=== PATIENT | male | born 1975 | race Asian ===

== ENCOUNTER 2025-01-29 12:52 | Outpatient (CLI) | payer OTHER, SELFPAY ==
--- NOTE | 2025-01-29 | ECG_ITS ---
Test Date: 2025-01-29 13:28:45 Measurements Intervals Curran Rate: 73 P: 53 PA: 151 QRS: 58 QRSD: 170 T: 24 QT: 392 QTc: 432 Interpretive Statements SINUS RHYTHM RIGHT BUNDLE BRANCH BLOCK [120+ ms QRS DURATION, UPRIGHT V1, 40+ ms S IN I/aVL/V4/V5/V6] ABNORMAL ELECTROCARDIOGRAM No previous ECG available for comparison Electronically Signed On 01-30-2025 08:27:06 CDT by Beto Shaw M.D.
--- OUTSIDE RECORDS SUMMARY | 2025-01-29 13:06 | XMS_ITS | Encounter Summary ---
Author Organization [facility] Address [address] [place] [address] Phone Care Team Providers Care Material Control Supervisor Name Role Phone No, Physician Primary Care Provider [phone] Encounter Details Date Type Department Care Team (Late st Contact Info) Description 01/04/[address] 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 Dr. Pawan OKEEFE for tappet adjuster. Follow up after surgery. documented in this encounter Plan of Treatment Not on file documented as of this encounter Visit Diagnoses Not on filedocumented in this encounter Care Teams Material Control Supervisor Relationship Specialty Start Date End Date No, Physician PCP - General Neurology 12/25/24 documented as of this encounter
--- OUTSIDE RECORDS SUMMARY | 2025-01-29 13:06 | XMS_ITS | Clinical Summary ---
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 Take 1 tablet (600 mg total) by mouth every 6 hours as needed for pain 20 tablet 04/10/2024 Active multivit with calcium,iron,min (MULTIVITAMIN-CA LCIUM AND IRON OR) Take 1 tablet by mouth every day Active Active Problems No known active problems Resolved Problems Problem Noted Date Diagnosed Date Resolved Date Screening for colon cancer 07/01/2023 0 09/11/2023 Immunizations Immunization Administration Dates Next Due SARS-COV-2 (PerformYard Covid-19) 01/03/20 21 SARS-COV-2 (Pfizer 12+ Bival ent Covid-19) - Duran Cap/Border 05/08/2022 SARS-CoV-2 (Pfizer Monovalent COVID-19) 04/28/20 21 Family History Medical History Relation Name Comments Diabetes Father Relation Name Status Comments Father Social History Tobacco Use Types Packs/Day Years Used Date Smoking Tobacco: Never Smokeless Tobacco: Never Alcohol Use Standard Drinks/Week Comments Yes 0 (1 standard drink = 0.6 oz pur e alcohol) Sex and Gender Information Value Date Recorded Sex Assigned at Not on file Legal Sex Male 9:19 AM EARLY BREASTFEEDING CARE SPECIALIST Gender Identity Not on file Sexual Orientation Not on file Last Filed Vital Signs Vital Sign Reading Time Taken Comments Blood Pressure 106/70 08/24/2024 10:30 AM CDT Pulse 75 08/24/2024 10:30 AM CDT Temperature 36.4 C (97.5 F) 04/10/2024 9:39 AM EARLY BREASTFEEDING CARE SPECIALIST Respiratory Rate 16 04/10/2024 9:39 AM EARLY BREASTFEEDING CARE SPECIALIST Oxygen Saturation 94% 08/24/2024 10:30 AM CDT Inhaled Oxygen Concentration - - Weight 86.3 kg (190 lb 4.1 oz) 08/24/2024 10:30 AM CDT Height 167.6 cm (5' 6) 08/24/2024 10:30 AM CDT Body Mass Index 30.71 08/24/2024 10:30 AM CDT Plan of Treatment Health Maintenance Due Date Last Done Comments Diagnostic Colonoscopy 1977 MMR Vaccines (1 of 1 - Standard series) 1978 DTaP/Tdap/Td Vaccines (1 - Tdap) 1996 Hepatitis B Vaccines (1 of 3 - 19+ 3-dose series) 1996 CT Colonography 2022 FIT-DNA (Cologuard) 2022 Fecal Immunochemical Testing (FIT) 2022 Fecal Occult Blood (FOBT) 2022 Flexible Sigmoidoscopy 2022 Depression Screening 06/03/2024 06/03/2023 COVID-19 Vaccine (2024-2 6 season) 2025 05/08/2022, 04/28/2021, 01/02/2021 Influenza Vaccine (#1) 2025 Screening for Diabetes 06/04/2026 , 06/03/2023 Lipid Panel 06/03/2028 06/03/2023 Colorectal Cancer Screening 07/29/2033 Screening Colonoscopy 07/29/2033 07/30/2023 HIB Vaccines Aged Out No longer eligi ble based on patient's age to complete this topic HPV Vaccines Aged Out No longer eligi ble based on patient's age to complete this topic Hepatitis A Vaccines Aged Out No long er eligible based on patient's age to complete this topic IPV Vaccines Aged Out No longer eligi ble based on patient's age to complete this topic Meningococcal B Vaccine Aged Out No l onger eligible based on patient's age to complete this topic Meningococcal Vaccine (ACWY) Aged Out No longer eligible based on patient's age to complete this topic Pneumococcal Vaccines Aged Out No benson giana eligible based on patient's age to complete this topic Rotavirus Vaccines Aged Out No longer eligible based on patient's age to complete this topic Medical Devices Implanted Type Area Floor Renovator Device Identifier Shelf Expiration Date Model / Serial / Lot Knee Description:Rt knee-screws, plate-2017 Procedures Procedure Name Priority Date/Time Associated Diagnosis Comments GLYCO HB A1C Routine 06/04/2023 7:54 AM EARLY BREASTFEEDING CARE SPECIALIST Elevated fasting glucose LIPID PANEL Routine 06/03/2023 8:21 AM EARLY BREASTFEEDING CARE SPECIALIST Screening cholesterol level from Last 3 Months or Most Recently Relevant to Health Maintenance Results * GLYCO HB A1C (06/04/2023 7:54 AM EARLY BREASTFEEDING CARE SPECIALIST) GLYCO HB A1C 5.4 4.0 - 7.0 % [facility] Comment: Recommended goal of therapy for adults with diabetes mellitus: <7.0% Adults > or =18 years: Increased risk (prediabetes): 5.7-6.4% The [place] Diabetes Association recommends the use of A1C for the diagnosis of diabetes mellitus in non- adults with an A1C result of > or =6.5% and confirmed with repeat testing. ESTIMATED AVERAGE GLUCOSE 108 [facility] Comment: The relationship between A1c and eAG is described by the formula (28.7 x A1c)-46.7 = eAG. Recommended eAG: <150 mg/dL [facility], [address] [place] [id number] 06/04/2023 7:54 AM EARLY BREASTFEEDING CARE SPECIALIST 06/04/2023 12:23 PM EARLY BREASTFEEDING CARE SPECIALIST us Shivam Bocanegra MD HEM/CHEM/IMMUN-BLOOD Final Resu lt [facility] [address] [place] [id number], * (ABNORMAL) LIPID PANEL (06/03/2023 8:21 AM EARLY BREASTFEEDING CARE SPECIALIST) CHOLESTEROL, TOTAL 203(H) 0 - 200 mg/dL [facility] Comment: Child Range (mg/dL) : Desirable < 170 Borderline 170 to 199 High >= 200 Adult Range: Desirable < 200 Borderline 200 to 239 High >= 240 TRIGLYCERIDES 98 <150 mg/dL [facility] Comment: Normal < 150 Borderline High 150 to 199 High 200 to 499 Very High >= 500 The National Cholesterol Education Program (NCEP) Adult Treatment Panel III Report recommends the classification shown above. Laboratories should follow recommendations for lipid ranges effective in their locale if they differ from those of the NCEP. HDL CHOLESTEROL 42 40 - 60 mg/dL [facility] Comment: The National Cholesterol Education Program (NCEP) recommends using fasting specimens for a lipoprotein profile. If the specimen is nonfasting, only the values for total cholesterol and HDL cholesterol are usable. LDL CHOLESTEROL >130 <100 mg/dL [facility] Comment:[facility] sp[facility], [address] [place] [address] 06/03/2023 8:21 AM EARLY BREASTFEEDING CARE SPECIALIST 06/03/2023 12:14 PM EARLY BREASTFEEDING CARE SPECIALIST us Shivam Bocanegra MD HEM/CHEM/IMMUN-BLOOD Final Resu lt [facility] [address] [place] [address], from Last 3 Months or Most Recently Relevant to Health Maintenance Insurance [employer]CIAL [employer] [facility] [facility] WORK [address] [place] [address] Care Teams Police Commissioner Relationship Specialty Start Date End Date Shivam Bocanegra MD [address] [place] [address] PCP - General Adult Medicine 06/03/23
--- OUTSIDE RECORDS SUMMARY | 2025-01-29 13:06 | XMS_ITS | Clinical Summary ---
Author Organization [facility] Address [address] [place] [address] Care Team Providers Care Environmental Professional Name Role Phone Santana Randhawa MD Primary Care Provider [phone] Allergies No known active allergies Medications Multiple Vitamins-Mineral s (CENTRUM) TABS Take 1 Tab by mouth daily Active Active Problems Problem Noted Date Diagnosed Date External hemorrhoid, thrombosed 11/06/2019 Internal hemorrhoids 11/06/2019 Rectal bleeding 11/06/2019 Rectal pain 11/06/2019 Closed fracture of femoral condyle 12/18/2016 Family History Relation Name Status Comments Father Alive Mother Alive Social History Tobacco Use Types Packs/Day Years Used Date Smoking Tobacco: Never Smokeless Tobacco: Never Tobacco Cessation:Counseling Given: Yes Alcohol Use Standard Drinks/Week Comments No 0 (1 standard drink = 0.6 oz pur e alcohol) Alcohol Use Answer Date Recorded Frequency of Alcohol Consumption Not on file 10/27/2023 Average Number of Drinks Not on file 024 Frequency of Binge Drinking Not on file 10/11 Alcohol Use Status No 10/27/2023 Average alcohol consumption Not on file 10/11 Sex and Gender Information Value Date Recorded Sex Assigned at Not on file Legal Sex Male 5:16 AM PUNCHER Gender Identity Not on file Sexual Orientation Not on file Last Filed Vital Signs Vital Sign Reading Time Taken Comments Blood Pressure 141/92 11/17/2022 9:58 AM EDT Pulse 56 11/17/2022 9:58 AM EDT Temperature 36.8 C (98.2 F) 11/17/2022 9:58 AM EDT Respiratory Rate 16 11/17/2022 9:58 AM EDT Oxygen Saturation 97% 11/17/2022 9:58 AM EDT Inhaled Oxygen Concentration - - Weight 83.9 kg (185 lb) 11/17/2022 9:58 AM EDT Height 167.6 cm (5' 6) 11/17/2022 9:58 AM EDT Body Mass Index 29.86 11/17/2022 9:58 AM EDT Plan of Treatment Health Maintenance Due Date Last Done Comments HIV Screening 1977 Hepatitis C Screening ages 1 8 to 79 once 1977 MMR VACCINES (1 of 1 - Standard series) 1978 DEPRESSION SCREENING 1989 ADULT TETANUS 1996 HEPATITIS B VACCINES (1 of 3 - 19+ 3-dose series) 1996 LIPID TESTING 2012 Colon Cancer Screening 2022 Influenza Vaccine 12/11/2024 YEARLY WELLNESS EXAM 12/30/2024 12/31/2023 COVID-19 Immunization ( season) 2025 05/08/2022, 04/28/2021, 01/02/2021 Zoster Vaccine (Recombinant Vaccine) (1 of 2) 08/21/2027 HEPATITIS A VACCINES Aged Out No long er eligible based on patient's age to complete this topic HIB VACCINES Aged Out No longer eligi ble based on patient's age to complete this topic HPV VACCINES Aged Out No longer eligi ble based on patient's age to complete this topic IPV VACCINES Aged Out No longer eligi ble based on patient's age to complete this topic MENINGOCOCCAL VACCINE Aged Out No benson giana eligible based on patient's age to complete this topic Meningococcal B Vaccine Aged Out No l onger eligible based on patient's age to complete this topic Pneumococcal Vaccine: Peds t o 50 & At-Risk Patients Aged Out No longer eligible based on patient's age to complete this topic ROTAVIRUS VACCINES Aged Out No longer eligible based on patient's age to complete this topic Medical Devices Implanted Type Area Outreach Assistant Device Identifier Shelf Expiration Date Model / Serial / Lot Plate T 4hh 6hs 3.5x78 Ra Cn [id number] Implanted:Qty: 1 on 12/20/2016 by Drew Shin MD at [facility] Plate Right: [employer]) 241.171 / / Screw Cortex S-T 3.5x38 Cn 204.838 Implanted:Qty: 1 on 12/20/2016 by Drew Shin MD at [facility] Screw Right: [employer]) 204.838 / / Screw Cortex S-T 3.5x45 Cn 204.845 Implanted:Qty: 2 on 12/20/2016 by Drew Shin MD at [facility] Screw Right: [employer]) 204.845 / / Screw Cortex S-T 3.5x55 Cn 204.855 Implanted:Qty: 1 on 12/20/2016 by Drew Shin MD at [facility] Screw Right: [employer]) 204.855 / / Screw Bone Canc F-T 4.0x60 Cn 206.060 Implanted:Qty: 2 on 12/20/2016 by Drew Shin MD at [facility] Screw Right: [employer]) 206.060 / / 2.7 Mm Metaphyseal S-T Screw 70mm Implanted:Qty: 2 on 12/20/2016 by Drew Shin MD at [facility] Screw Right: Fem[employer] 02.118.570 / / Explanted Type Area Outreach Assistant Device Identifier Shelf Expiration Date Model / Serial / Lot K-Wire .062 Trocar Pt Cn [id number] Implanted:Drew More MD (Quantity not on file) Explanted:Qty: 4 on 12/20/2016 by Drew Shin MD at [facility] K-Wire Right: [employer] [id number] / / Pin Abe 5/64x9 Cn T-078-S Implanted:Drew More MD (Quantity not on file) Explanted:Qty: 1 on 12/20/2016 by Drew Shin MD at [facility] Pin Right: [employer] T-078-S / / Insurance AETNA HEALTHCARE AET HEALTHCARE AETNA HEALTHCARE [facility] HEALTHCARE STATE [facility] Advance Directives * Full Code (Latest Code Status on File) Date Activated Date Inactivated Comments 12/18/2016 5:39 PM 12/21/2016 8:15 PM Care Teams Environmental Professional Relationship Specialty Start Date End Date Santana Randhawa MD [address] [place] [address] [place] [address] PCP - General Internal Medicine 12/18/16
--- OUTSIDE RECORDS SUMMARY | 2025-01-29 13:06 | XMS_ITS | Clinical Summary ---
Author Organization [facility] Address [facility] [place] [address] Phone Care Team Providers Care Ciaio Lumite Injector Name Role Phone Unavailable Primary Care Provider Unavailabl e Allergies No known active allergies Medications sildenafil citrate (VIAGRA) 100 MG Tablet Take 100 mg by mouth as needed. Take 1 tablet by oral route every day as needed approximately 1 hour before sexual activity Active multiple vitamin with minerals (CENTRUM) Tablet Take 1 Tablet by mouth daily. Active Active Problems Problem Noted Date Diagnosed Date Rectal bleeding 12/18/2021 Wellness examination (Adult) 12/18/2021 Family History Medical History Relation Name Comments Arthritis Father Diabetes Father Kidney Disease Father Hypertension Mother Relation Name Status Comments Brother 1 John Alive Brother 2 Virgilio Alive Father Alive Mother Alive Sister Luz Alive Social History Tobacco Use Types Packs/Day Years Used Date Smoking Tobacco: Never Smokeless Tobacco: Never Alcohol Use Standard Drinks/Week Comments Yes 0 (1 standard drink = 0.6 oz pur e alcohol) Sexually Active Control Partners Comments Yes Sex and Gender Information Value Date Recorded Sex Assigned at Not on file Legal Sex Male 4:35 PM RESEARCH AND DEVELOPMENT DIRECTOR Gender Identity Not on file Sexual Orientation Not on file Last Filed Vital Signs Vital Sign Reading Time Taken Comments Blood Pressure 122/82 12/18/2021 4:02 PM CDT Pulse 64 12/18/2021 4:02 PM CDT Temperature - - Respiratory Rate 18 12/18/2021 4:02 PM CDT Oxygen Saturation 97% 12/18/2021 4:02 PM CDT Inhaled Oxygen Concentration - - Weight 83.5 kg (184 lb) 12/18/2021 4:02 PM CDT Height 167.6 cm (5' 6) 12/18/2021 4:02 PM CDT Body Mass Index 29.7 12/18/2021 4:02 PM CDT Plan of Treatment Health Maintenance Due Date Last Done Comments Hepatitis C Virus (HCV) Screening 1977 TdaP Immunization 1977 Hepatitis B Immunization (1 of 3 - 19+ 3-dose series) 1996 Cologuard 2022 Colonoscopy 2022 Colorectal Cancer Screening 2022 Immunochemical Fecal Occult Blood 2022 Influenza Immunization (#1) 2025 SARS-COV-2 Immunization ( - season) 2025 04/28/2021 Respiratory Syncytial Virus (RSV) Immunization (Adult) (1 - 1-dose 75+ series) 2052 Human Papillomavirus (HPV) Immunization Aged Out No longer eligible b ased on patient's age to complete this topic Meningococcal Immunization (ACWY) Aged Out No longer eligible based on patient's age to complete this topic Pneumococcal Immunization Combined Aged Out No longer eligible based on patient's age to complete this topic Rotavirus Immunization Aged Out No lo nger eligible based on patient's age to complete this topic [facility] [employer]
--- OUTSIDE RECORDS SUMMARY | 2025-01-29 13:06 | XMS_ITS | Clinical Summary ---
Author Organization [facility] Address [address] [facility] [place] [address] Care Team Providers Care Gage Designer Name Role Phone Shivam Bocanegra MD Primary Care Provider Source Comments [facility],non-owned Affiliates and Associated Physician Practices is amultiple site organization consisting of ambulatory clinics and hospital sitesin [place], [place], [place] and [place]. This disclosure is being madepursuant to the Care Everywhere program and may not contain all information available regarding this patient. Last updated 18.[facility] Allergies No known active allergies Social History Tobacco Use Types Packs/Day Years Used Date Smoking Tobacco: Never Assessed Sex and Gender Information Value Date Recorded Sex Assigned at Not on file Legal Sex Male 9:03 AM COMMUTATOR REPAIRER Gender Identity Not on file Sexual Orientation Not on file Plan of Treatment Health Maintenance Due Date Last Done Comments COLOGUARD (AGES 45-75) - COL ON CA SCREENING 1977 COLON MONITORING 1977 COLONOSCOPY - COLON CA SCREENING 1977 CT COLONOGRAPHY - COLON CA SCREENING 1977 Colorectal Cancer Screening 1977 FIT - COLON CA SCREENING 1977 FLEX SIG - COLON CA SCREENING 1977 HIV SCREENING 1992 HEPATITIS C SCREENING 08/16/1995 DTAP/TDAP/TD VACCINES (1 - Tdap) 1996 HEPATITIS B VACCINE (1 of 3 - 19+ 3-dose series) 1996 DEPRESSION SCREENING 05/13/2024 COVID-19 VACCINE ( - 2024-2 6 season) 2025 05/08/2022, 04/28/2021, 01/02/2021 INFLUENZA VACCINE (#1) 2025 ZOSTER VACCINE (1 of 2) 08/21/2027 LIPID TESTING 06/03/2028 06/03/2023 HIB VACCINE Aged Out No longer eligi ble based on patient's age to complete this topic HPV VACCINE Aged Out No longer eligi ble based on patient's age to complete this topic MENINGOCOCCAL (Group B) VACCINE SHARED DECISION-MAKING Aged Out No longer eligible based on patient's age to complete this topic MENINGOCOCCAL GROUPS A/C/Y/W VACCINE Aged Out No longer eligible b ased on patient's age to complete this topic PNEUMOCOCCAL VACCINE Aged Out No long er eligible based on patient's age to complete this topic Insurance [id number] GENERIC Care Teams Gage Designer Relationship Specialty Start Date End Date Shivam Bocanegra MD [address] [place] [address] PCP - General Internal Medicine 06/03/24
--- OUTSIDE RECORDS SUMMARY | 2025-01-29 13:06 | XMS_ITS | Encounter Summary ---
Author Organization [facility] Address [address] [place] [address] Phone Care Team Providers Care Bulb Sorter Name Role Phone Shivam Bocanegra MD Primary Care Provider [phone] Encounter Details Date Type Department Care Team (Late st Contact Info) Description 11/27/2022 Scanned Document [facility] [address] [place] [address] Eyer, Dagmar [place], ADARSH [address] [place] [id number] Social History Tobacco Use Types Packs/Day Years Used Date Smoking Tobacco: Never Assessed Sex and Gender Information Value Date Recorded Sex Assigned at Not on file Legal Sex Male 9:19 AM CAN LINE OPERATOR Gender Identity Not on file Sexual Orientation Not on file documented as of this encounter Plan of Treatment Not on file documented as of this encounter Visit Diagnoses Not on filedocumented in this encounter Care Teams Bulb Sorter Relationship Specialty Start Date End Date Shivam Bocanegra MD [address] [place] [address] PCP - General Adult Medicine 06/03/23 documented as of this encounter
--- OUTSIDE RECORDS SUMMARY | 2025-01-29 13:06 | XMS_ITS | Encounter Summary ---
Author Organization [employer] [facility] Address [address] [place] [address] Phone Care Team Providers Care Business Risk Analyst Name Role Phone Shivam Bocanegra MD Primary Care Provider [phone] Encounter Details Date Type Department Care Team ([facility] st Contact Info) Description 04/13/2024 Telephone [facility] [place] [address] [place] [address] Dru Hancock PA [address] [place] [address] Social History Tobacco Use Types Packs/Day Years Used Date Smoking Tobacco: Never Smokeless Tobacco: Never Alcohol Use Standard Drinks/Week Comments Yes 0 (1 standard drink = 0.6 oz pur e alcohol) Sex and Gender Information Value Date Recorded Sex Assigned at Not on file Legal Sex Male 9:19 AM ART PSYCHOTHERAPIST Gender Identity Not on file Sexual Orientation Not on file documented as of this encounter Miscellaneous Notes * Telephone Encounter - Lillie Shipman - 04/13/2024 8:06 AM CST Patient called and states he was seen in the emergency room and is wanting to schedule an appt withDru Hancock. I do not see a referral for this & he states it was a worker's compensation. He is requesting a call back to to get scheduled & can be reached at [phone] PSYCHOTHERAPIST documented in this encounter Plan of Treatment Not on file documented as of this encounter Visit Diagnoses Not on filedocumented in this encounter Additional Health Concerns Assessment Noted Time A Hypertension Plan of Care has been documented for the patient 06/03/2023 8:05 AM ART PSYCHOTHERAPIST documented as of this encounter Care Teams Business Risk Analyst Relationship Specialty Start Date End Date Shivam Bocanegra MD [address] [place] [address] PCP - General Adult Medicine 06/03/23 documented as of this encounter
--- OUTSIDE RECORDS SUMMARY | 2025-01-29 13:06 | XMS_ITS | Encounter Summary ---
Author Organization [facility] Address [address] [place] [address] Phone Care Team Providers Care Checker Product Design Name Role Phone Shivam Bocanegra MD Primary Care Provider [phone] Reason for Referral * Consultation - Authorized Specialty Diagnoses / Procedures Referred By Ryan balbuena Referred To Contact Orthopedics Diagnoses Acute pain of left shoulder Traumatic incomplete tear of left rotator cuff, subsequent encounter Rotator cuff tendinitis, left Adhesive capsulitis of left shoulder Work related injury Procedures AMB CONSULT [facility] Dru Hancock PA [address] [place] [address] Phone: tel: fax: Referral ID Status Reason Start Date Expiration Date V isits Requested Visits Authorized [id number] Authorized 08/28/2024 1 1 Reason for Visit * Reason Onset Date Comments Referral 08/27/2024 Encounter Details Date Type Department Care Team ([facility] st Contact Info) Description 08/27/2024 Telephone [facility] [place] [address] [place] [address] Dru Hancock PA [address] [place] [address] Referral Social History Tobacco Use Types Packs/Day Years Used Date Smoking Tobacco: Never Smokeless Tobacco: Never Alcohol Use Standard Drinks/Week Comments Yes 0 (1 standard drink = 0.6 oz pur e alcohol) Sex and Gender Information Value Date Recorded Sex Assigned at Not on file Legal Sex Male 9:19 AM STOCK FITTER Gender Identity Not on file Sexual Orientation Not on file documented as of this encounter Miscellaneous Notes * Telephone Encounter - Dru Hancock PA - 08/28/2024 8:44 AM CDT Referral to [facility] placed. * Telephone Encounter - Gavin Law - 08/27/2024 3:54 PM CDT Received call from Gruver Maik re pt's referral. Advised when she called pt to schedule an appointment, he informed her that he would be moving close to the [facility] area on September 25. Dr Camargo's next opening is not until October 12. States they are closing the referral with them. Wanted you to be aware of this so you can refer pt to somewhere closer to [facility] if needed. documented in this encounter Plan of Treatment Not on file documented as of this encounter Visit Diagnoses Diagnosis Acute pain of left shoulder- Primary Traumatic incomplete tear of left rotator cuff, subsequent encounter Rotator cuff tendinitis, left Adhesive capsulitis of left shoulder Adhesive capsulitis of shoulder Work related injury Injury, other and unspecified, unspecified site documented in this encounter Additional Health Concerns Assessment Noted Time A Hypertension Plan of Care has been documented for the patient 06/03/2023 8:05 AM STOCK FITTER documented as of this encounter Care Teams Checker Product Design Relationship Specialty Start Date End Date Shivam Bocanegra MD [address] [place] [address] PCP - General Adult Medicine 06/03/23 documented as of this encounter
--- OUTSIDE RECORDS SUMMARY | 2025-01-29 13:06 | XMS_ITS | Clinical Summary ---
Author Organization [facility] Address [address] [place] [id number] Care Team Providers Care Resident Care Provider Name Role Phone No, Physician Primary Care Provider Allergies No known active allergies Medications No known medications Active Problems Problem Noted Date Diagnosed Date Traumatic incomplete tear of left rotator cuff 0 01/04/2025 Superior glenoid labrum lesion of left shoulder 01/04/2025 Tear of left glenoid labrum 01/04/2025 Arthritis of left acromioclavicular joint 2024 Injury of left shoulder 10/20/2024 Acute pain of left shoulder 10/20/2024 Encounters Date Type Department Care Team Description 01/05/2025 Telephone [facility] Medicine Orthopaedic Surgery [address] [facility] 2nd [address] [place] [address] No Medel RMA 01/04/2025 2:10 PM CDT Office Visit [facility] [place], [place] Orthopaedic Surgery [address] [facility] 12th [place] [address] [place] [address] Ok Villalta IV, MD Tear of left glenoid labrum, subsequent encounter (Primary Dx); Superior glenoid labrum lesion of left shoulder, subsequent encounter; Traumatic incomplete tear of left rotator cuff, subsequent encounter; Arthritis of left acromioclavicular joint 01/04/2025 Telephone [facility] Medicine Orthopaedic Surgery [address] [facility] 2[address] [place] [address] Marialuisa Jorge ATC 12/25/2024 9:59 AM CDT - 12/25/2024 11:59 PM CDT Hospital Encounter [facility] [address] [place] [id number] Injury of left shoulder, initial encounter; Acute pain of left shoulder Discharge Disposition: Discharge to home or self care 12/25/2024 9:59 AM CDT - 12/25/2024 11:59 PM CDT Hospital Encounter [facility] [address] [place] [id number] Injury of left shoulder, initial encounter; Acute pain of left shoulder Discharge Disposition: Discharge to home or self care 12/16/2024 Orders Only [facility] [place] [place] Orthopaedic Surgery [address] [place] [address] [address]nd [address] [place] [address] Ok Villalta IV, MD Injury of left shoulder, initial encounter (Primary Dx); Acute pain of left shoulder 12/16/2024 Telephone [facility] [place] [place] Orthopaedic Surgery [address] [place] [address] 2nd [address] [place] [phone] Ok Villalta IV, MD 12/15/2024 Orders Only [facility] [place] [place] Orthopaedic Surgery [address] [place] [address] [address] [place] [address] Ok Villalta IV, MD from Last 3 Months Family History Medical History Relation Name Comments Arthritis Father Diabetes Father Gout Father Arthritis Mother Hypertension Mother Relation Name Status Comments Father Mother Social History Tobacco Use Types Packs/Day Years Used Date Smoking Tobacco: Never Tobacco Cessation:Counseling Given: Not Answered Sex and Gender Information Value Date Recorded Sex Assigned at Not on file Legal Sex Male 2:50 PM CDT Gender Identity Not on file Sexual Orientation Not on file 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 Not on file Not on file Obstetrics History Last Filed Vital Signs Vital Sign Reading Time Taken Comments Blood Pressure - - Pulse - - Temperature - - Respiratory Rate - - Oxygen Saturation - - Inhaled Oxygen Concentration - - Weight 83.9 kg (185 lb) 10/20/2024 11:3 4 AM CDT PATIENT REPORTED Height 167.6 cm (5' 6) 10/20/2024 11:3 4 AM CDT PATIENT REPORTED Body Mass Index 29.86 10/20/2024 11:34 AM CDT Plan of Treatment Health Maintenance Due Date Last Done Comments Colon Cancer Screening-Colonoscopy 1977 Depression Screening 1977 Hepatitis C Screening 1977 DTaP/Tdap/Td Vaccine (1 - Tdap) 1988 Hepatitis B Screening 08/21/1995 Regular Well Visit/Exam 18-64 08/21/1995 Covid-19 Vaccine (3 - 2024-2 6 season) 2025 04/28/2021, 01/02/2021 Influenza Vaccine (#1) 2025 Pneumococcal vaccine <65 Aged Out No longer eligible based on patient's age to complete this topic Procedures Procedure Name Priority Date/Time Associated Diagnosis Comments MRI SHOULDER ARTHROGRAM LEFT W CONTRAST Schedule Routine, Read Routine (OP Routine) 12/25/2024 11:06 AM CDT Injury of left shoulder, initial encounter Acute pain of left shoulder INJECTION SHOULDER LEFT ARTHRO ONLY Schedule Routine, Read Routine (OP Routine) 12/25/2024 10:36 AM CDT Injury of left shoulder, initial encounter Acute pain of left shoulder from Last 3 Months Results * MRI Shoulder Arthrogram Left W Contrast (12/25/2024 11:06 AM CDT) Anatomical Region Laterality Modality Upper Extremities Left Magnetic Reson ance 12/25/2024 12:0 9 PM CDT Impressions 12/25/2024 12:32 PM CDT 1. Left rotator cuff tendinopathy with 12 mm partial-thickness undersurface tear of the anterior supraspinatus, 15 mm partial-thickness, undersurface tear of the superior subscapularis tendon, and biceps tendinopathy (rotator interval lesion). 2. Nondisplaced tear of the superior and posterior glenoid labrum from 10-12 o'clock. 3. Moderate acromioclavicular joint osteoarthritis. Dictated by: Humberto Lux MD The radiology attending physician has personally reviewed this study, and had reviewed and/or edited this written report and agrees with it. Electronically signed by: Ilan Phillips M.D. Narrative 12/25/2024 12:32 PM CDT EXAMINATION: 1. MR left shoulder with contrast HISTORY: Left shoulder pain FINDINGS: Comparison radiographs from 10/17/2024. Injection arthrogram was performed prior to the MR, which will be dictated separately. MR examination of the left shoulder was performed with a local coil. Transverse, oblique coronal, and oblique sagittal short TR/TE and fast spin-echo images are obtained. Lastly, the arm was placed in the position of abduction and external rotation and oblique short TR/TE images were obtained. There is a type 2 acromion. The coracoacromial ligament is thin. There is no subacromial spur. There is moderate acromioclavicular joint osteoarthritis. There is trace subacromial subdeltoid bursitis. The rotator cuff muscle bulk is normal. There is moderate subscapularis tendinopathy with a distal partial thickness articular sided tear at the rotator interval and 1.5 cm of interstitial propagation. There is moderate supraspinatus tendinopathy with a delaminating 12 mm partial-thickness articular sided tear. Mild infraspinatus tendinopathy without tear. On this arthrographic evaluation, there is a nondisplaced posterior labral tear extending from the 11:00-7 o'clock position. The intra-articular biceps tendon is mildly tendinopathic. The labrum below the equator is otherwise normal. No loose bodies are identified. The bone marrow signal is normal. Procedure Note Ilan Phillips MD - 12/25/2024 EXAMINATION: 1. MR left shoulder with contrast HISTORY: Left shoulder pain FINDINGS: Comparison radiographs from 10/17/2024. Injection arthrogram was performed prior to the MR, which will be dictated separately. MR examination of the left shoulder was performed with a local coil. Transverse, oblique coronal, and oblique sagittal short TR/TE and fast spin-echo images are obtained. Lastly, the arm was placed in the position of abduction and external rotation and oblique short TR/TE images were obtained. There is a type 2 acromion. The coracoacromial ligament is thin. There is no subacromial spur. There is moderate acromioclavicular joint osteoarthritis. There is trace subacromial subdeltoid bursitis. The rotator cuff muscle bulk is normal. There is moderate subscapularis tendinopathy with a distal partial thickness articular sided tear at the rotator interval and 1.5 cm of interstitial propagation. There is moderate supraspinatus tendinopathy with a delaminating 12 mm partial-thickness articular sided tear. Mild infraspinatus tendinopathy without tear. On this arthrographic evaluation, there is a nondisplaced posterior labral tear extending from the 11:00-7 o'clock position. The intra-articular biceps tendon is mildly tendinopathic. The labrum below the equator is otherwise normal. No loose bodies are identified. The bone marrow signal is normal. IMPRESSION: 1. Left rotator cuff tendinopathy with 12 mm partial-thickness undersurface tear of the anterior supraspinatus, 15 mm partial-thickness, undersurface tear of the superior subscapularis tendon, and biceps tendinopathy (rotator interval lesion). 2. Nondisplaced tear of the superior and posterior glenoid labrum from 10-12 o'clock. 3. Moderate acromioclavicular joint osteoarthritis. Dictated by: Humberto Lux MD The radiology attending physician has personally reviewed this study, and had reviewed and/or edited this written report and agrees with it. Electronically signed by: Ilan Phillips M.D. Ok Villalta IV, MD IM MRI PROCEDURES Fi nal Result * Injection Shoulder Left Arthro Only (12/25/2024 10:36 AM CDT) Anatomical Region Laterality Modality Shoulder Left Computed Radiogr aphy 12/25/2024 10:4 3 AM CDT Impressions 12/25/2024 10:43 AM CDT 1. Left glenohumeral joint injection under fluoroscopic guidance for MR arthrography. Electronically signed by: Humberto Lux MD Narrative 12/25/2024 10:43 AM CDT EXAMINATION: 1. Left glenohumeral joint injection 2. Fluoroscopic guidance for needle placement HISTORY: Left shoulder pain, pre MR arthrogram. TECHNIQUE: The risks, benefits and alternatives were discussed with the patient. Informed consent was obtained. Prior to beginning the procedure, Waldron Protocol was performed to confirm the patient's identity and the planned procedure. The fluoroscopy time has been recorded in the electronic medical record. The patient was placed supine on the fluoroscopy table. The left glenohumeral joint was localized with fluoroscopic guidance. The skin was prepped and draped in a standard sterile fashion. Using sterile technique, a 20 mL solution was prepared consisting of 10 mL of a 1:100 dilution of Dotarem gadolinium contrast in sterile saline and 10 mL Omnipaque 300. Local anesthesia was achieved with subcutaneous injection of 1% lidocaine 5 mL. A 22-gauge needle was then introduced into the joint under fluoroscopic guidance. The intra-articular position of the needle was confirmed with injection of 1 mL of the previously described injectate. Subsequently 12 total mL of the 1:200 gadolinium contrast was injected with intermittent fluoroscopic visualization. The injection was performed by Dr. Humberto Lux MD . Complication: None Type: None The patient was then transferred to the MR suite for MR arthrogram. Dr. Humberto Lux MD, the attending radiologist, was present from the beginning to the end of the procedure. FINDINGS: Fluoroscopic images confirm intra-articular position of the needle tip with subsequent filling of the joint space. The results of the MR arthrogram are reported separately. Procedure Note Humberto Lux MD - 12/25/2024 EXAMINATION: 1. Left glenohumeral joint injection 2. Fluoroscopic guidance for needle placement HISTORY: Left shoulder pain, pre MR arthrogram. TECHNIQUE: The risks, benefits and alternatives were discussed with the patient. Informed consent was obtained. Prior to beginning the procedure, Waldron Protocol was performed to confirm the patient's identity and the planned procedure. The fluoroscopy time has been recorded in the electronic medical record. The patient was placed supine on the fluoroscopy table. The left glenohumeral joint was localized with fluoroscopic guidance. The skin was prepped and draped in a standard sterile fashion. Using sterile technique, a 20 mL solution was prepared consisting of 10 mL of a 1:100 dilution of Dotarem gadolinium contrast in sterile saline and 10 mL Omnipaque 300. Local anesthesia was achieved with subcutaneous injection of 1% lidocaine 5 mL. A 22-gauge needle was then introduced into the joint under fluoroscopic guidance. The intra-articular position of the needle was confirmed with injection of 1 mL of the previously described injectate. Subsequently 12 total mL of the 1:200 gadolinium contrast was injected with intermittent fluoroscopic visualization. The injection was performed by Dr. Humberto Lux MD . Complication: None Type: None The patient was then transferred to the MR suite for MR arthrogram. Dr. Humberto Lux MD, the attending radiologist, was present from the beginning to the end of the procedure. FINDINGS: Fluoroscopic images confirm intra-articular position of the needle tip with subsequent filling of the joint space. The results of the MR arthrogram are reported separately. IMPRESSION: 1. Left glenohumeral joint injection under fluoroscopic guidance for MR arthrography. Electronically signed by: Humberto Lux MD Ok Villalta IV, MD IMG XR PROCEDURES Fin al Result from Last 3 Months Insurance [facility] [employer] Address: [facility] [id number] [place] [phone] [facility] [employer] GENERIC Care Teams Resident Care Provider Relationship Specialty Start Date End Date No, Physician PCP - General Neurology 12/25/24
[2025-01-29 13:27] LABS: Hematocrit 47.5 % (42.0-52.0); Hemoglobin 15.8 g/dL (14.0-18.0); Mean Corpuscular HGB Conc 33.3 g/dl (32-36); Mean Corpuscular Hemoglobin 28.7 pg (26-34); Mean Corpuscular Volume 86.2 fl (80-100); Platelet Count Result 252 k/mm3 (150-375); Red Blood Count 5.51 M/mm3 (4.6-6.20); White Blood Count 5.5 K/mm3 (4.5-10.0)
[2025-01-29 13:45] LABS: Alanine Aminotransferase 30 U/L (6-50); Albumin Level 4.5 g/dL (3.5-5.1); Alkaline Phosphatase 75 U/L (38-126); Anion Gap 9 mmol/L (4-12); Aspartate Amino Transferase 36 U/L (17-59); Bilirubin,Total 0.8 mg/dL (0.2-1.3); Blood Urea Nitrogen 19 mg/dL (9-20); Calcium 9.1 mg/dL (8.4-10.2); Carbon Dioxide 28 mmol/L (22-30); Chloride 103 mmol/L (98-107); Estimated Glomerular Filt Rate > 60; Glucose 127 mg/dL (65-110); Sodium 140 mmol/L (137-145); Total Protein 8.5 g/dL (6.3-8.2)
[2025-01-29 13:52] LABS: Potassium 3.9 mmol/L (3.4-5.0)
== END 2025-01-29 12:53 | disposition home or self-care (01) ==
LOC: ANHLAB 13:03
PROVIDERS: Visit Provider Orthopaedic Surgery
DX: Z01.812 Encounter for preprocedural laboratory examination (principal); Z01.818 Encounter for other preprocedural examination; Z01.810 Encounter for preprocedural cardiovascular examination; Z01.811 Encounter for preprocedural respiratory examination; S43.432A Superior glenoid labrum lesion of left shoulder, initial encounter; X58.XXXA Exposure to other specified factors, initial encounter
CPT/HCPCS: 36415; 80053; 85027; 93005